=== PATIENT | male | born 1950 | race Caucasian/White ===

== ENCOUNTER 2022-07-14 11:40 | Inpatient (IN) | payer MEDICARE ==
[~2022-07-14 11:40] MED LIST: AMIODARONE 50 MG/ML 3 ML VIAL IV ONE; CALCIUM CHLORIDE 100 MG/ML 10 ML SYRINGE ONE; DEXTROSE 5% IN WATER 50 ML BAG ONE; EPINEPHrine 10 ML SYRINGE (0.1 MG/ML) ONE; LIDOCAINE 2% SYG (PF) 100 MG/5 ML ONE; MAGNESIUM SULFATE SYG 4.06 MEQ/ML SYRINGE ONE; SODIUM BICARB 8.4% 50 ML SYR (1 MEQ/ML) ONE
[2022-07-14 11:55] LABS: Glucose,Whole Blood 68 mg/dL (70-110)
[2022-07-14] MEDS ORDERED: NOREPINEPHRINE 32 MG in SODIUM CHLORIDE 0.9% 218 ML IV ONE (12:04)
[2022-07-14] MEDS ORDERED: DEXTROSE 5% IN WATER 100 ML with AMIODARONE 150 MG IV ONE (12:08)
[2022-07-14] MEDS ORDERED: AMIODARONE 360 MG in DEXTROSE 5% IN WATER 200 ML IV ONE ×2 (12:13)
[2022-07-14 12:16] LABS: Glucose,Whole Blood 68 mg/dL (70-110)
--- NOTE | 2022-07-14 12:23 | XR ---
EXAMINATION TYPE: XR chest 1V portable DATE OF EXAM: 07/14/2022 COMPARISON: NONE HISTORY: Cardiac arrest. TECHNIQUE: Single AP portable frontal supine view of the chest is obtained. FINDINGS: There is endotracheal tube terminating at superior aortic knob level approximately 4 to 5 cm above the trina. Cardiac silhouette size is upper limits of normal. There is small left pleural e ffusion. There is increased opacities bilaterally. Entire right lung base is not included. No pneumot horax is clearly evident. Underlying scoliosis is seen. IMPRESSION: 1. Satisfactory positioning of endotracheal tube. 2. Small left pleural effusion with diffuse bilateral edema and/or acute infiltrates.
[2022-07-14 12:36] LABS: Anisocytosis Slight; Hypochromasia Marked; MCH 33.2 pg (25.0-35.0); MCV 110.6 fL (80.0-100.0); Macrocytosis Marked; Mean Platelet Volume 10.8; RBC 4.52 m/uL (4.30-5.90)
[2022-07-14 12:53] LABS: Albumin 1.9 g/dL (3.5-5.0); Calcium 7.9 mg/dL (8.4-10.2); INR 2.1 (<1.2); Magnesium 4.8 mg/dL (1.6-2.3); Partial Thromboplastin Time 59.8 sec (22.0-30.0); Total Bilirubin 1.8 mg/dL (0.2-1.3); Total Protein 3.9 g/dL (6.3-8.2)
[2022-07-14] MEDS ORDERED: SODIUM CHLORIDE 0.9% 1,000 ML IV STA (12:54)
[2022-07-14 13:15] LABS: Platelet Count 72 k/uL (150-450)
[2022-07-14 13:17] LABS: Potassium 5.4 mmol/L (3.5-5.1)
[2022-07-14 13:19] LABS: Metamyelocytes # (M) 0.08 k/uL (0); Metamyelocytes % 1 %; Monocytes # (M) 0.16 k/uL (0-1.0); Myelocytes # (M) 0.08 k/uL (0); Myelocytes % 1 %; Neutrophils % (M) 88 %; Nucleated Red Blood Cells 1 /100 WBC (0-0); Total Cells Counted 200
[2022-07-14 13:20] LABS: Lymphocytes # (M) 0.71 k/uL (1.0-4.8); Neutrophils # (M) 6.95 k/uL (1.3-7.7); WBC 7.9 k/uL (3.8-10.6)
--- NOTE | 2022-07-14 13:46 | ED ---
CPR HPI - General Chief Complaint: Cardiac Arrest/CPR Stated Complaint: Cardiac Arrest Time Seen by Provider: 07/14/22 11:40 Source: EMS Mode of arrival: EMS - History of Present Illness Initial Comments: 71-year-old male with reported history of possible congestive heart failure who presents to the emergency department as a cardiac arrest. Daughter and EMS provided the history. Daughter states that he refused to see a physician for over 30 years. As of recent the patient did agree to be seen by Dr. Ashley's office. He had been started on a water pill. He is taking 20 mg of Lasix daily. Daughter states that over the past couple of days he has had increasing swelling and shortness of breath. The primary care office has been calling and urging the patient to go into the hospital. Daughter states that she has been unable to force him to go because he still makes his own medical decisions. Today the patient was short of breath and arrested in the bathroom in front of his daughter. She did start CPR and EMS call went out at 1106. They report that they were at the patient's house by 11:15 and the patient was pulseless. CPR was initiated. They did obtain a pulse back. Patient was intubated with a 7-1/2 ET tube in the field. Upon transport to the hospital he had received 5 epis. They lost pulses and it was noted that the patient was in V. fib so he was defibrillated. EMS was never able to get pulses back after this. He arrives to us intubated and bagged. He does not have a pulse in the Dhiraj device is performing compressions. He does have visible swelling to the lower extremities and blood coming from his ET tube. Family denies that he's had any fevers. Has had a cough. The remainder of the HPI is limited because of the patient's current status - Related Data Home Medications Medication Instructions Recorded Confirmed Aspirin EC [Ecotrin Low Dose] 81 mg PO DIRECTED 07/14/22 07/14/22 Furosemide [Lasix] 20 mg PO DIRECTED 07/14/22 07/14/22 Metoprolol Succinate (ER) [Toprol 25 mg PO DIRECTED 07/14/22 07/14/22 Xl] Warfarin Sodium 2.5 mg PO DIRECTED 07/14/22 07/14/22 Allergies Allergy/AdvReac Type Severity Reaction Status Date / Time No Known Allergies Allergy Unverified 07/14/22 14:41 Review of Systems ROS Statement: Those systems with pertinent positive or pertinent negative responses have been documented in the HPI. ROS Other: All systems not noted in ROS Statement are negative. General Exam Limitations: altered mental status, physical limitation General appearance: other (unresponsive to tactile, painful, verbal stimuli) Head exam: Present: atraumatic, normocephalic, normal inspection Pupils: Present: mydriatic (4 mm, non reactive) ENT exam: Present: other (intubated. copious blood sputum in ET tube) Respiratory exam: Present: other (bagged - no spontanous respirations. extremely coarse breath sounds) Cardiovascular Exam: Present: other (no palpable pulse) GI/Abdominal exam: Present: soft, distended Extremities exam: Present: other (no spontanous movemets) Neurological exam: Present: altered Skin exam: Present: cyanosis, pallor Course Vital Signs 07/14/22 07/14/22 07/14/22 12:04 12:42 12:50 Pulse Rate 70 70 Respiratory 22 20 Rate Blood Pressure 78/58 77/42 O2 Sat by Pulse Oximetry Fraction of 100 Inspired Oxygen (FIO2) 07/14/22 07/14/22 07/14/22 12:58 13:00 13:10 Pulse Rate 69 70 Respiratory 20 20 Rate Blood Pressure 72/51 81/65 O2 Sat by Pulse 95 89 L Oximetry Fraction of 100 Inspired Oxygen (FIO2) 07/14/22 07/14/22 07/14/22 13:20 13:30 13:56 Pulse Rate 69 66 65 Respiratory 20 20 20 Rate Blood Pressure 85/65 81/30 O2 Sat by Pulse 68 L 81 L Oximetry Fraction of Inspired Oxygen (FIO2) 07/14/22 07/14/22 07/14/22 14:00 14:10 14:20 Pulse Rate 66 61 54 L Respiratory 16 19 16 Rate Blood Pressure 81/30 138/101 163/88 O2 Sat by Pulse 75 L 79 L Oximetry Fraction of Inspired Oxygen (FIO2) 07/14/22 07/14/22 07/14/22 14:30 14:40 14:50 Pulse Rate 52 L 55 L 57 L Respiratory 20 18 3 L Rate Blood Pressure 167/106 114/70 O2 Sat by Pulse 70 L Oximetry Fraction of Inspired Oxygen (FIO2) 07/14/22 15:22 Pulse Rate Respiratory Rate Blood Pressure O2 Sat by Pulse Oximetry Fraction of 100 Inspired Oxygen (FIO2) Procedures - Central Line Placement Left Femoral Consent Obtained: emergent situation Patient Placed on Monitor/Pulse Ox: Yes MD Prep: mask, gown, gloves Central Line Prep: Chlorhexidine scrub Ultrasound Used for Placement: Yes Central Line Lumen Inserted: triple Bloods Obtained for Lab: Yes Central Line Position: good blood return, all ports aspirated, flushed, capped, sutured in place with nylon Dressing Applied: Tegaderm Patient Tolerated Procedure: well, no complications Complications: none Medical Decision Making - Medical Decision Making Was pt. sent in by a medical professional or institution (, PA, MEDIA TRAFFIC MANAGER, urgent care, hospital, or care home...) When possible be specific @ -No Did you speak to anyone other than the patient for history (EMS, parent, family, police, friend...)? What history was obtained from this source @ -Patients daughter provides history, EMS provides details of what medical care they provided Did you review nursing and triage notes (agree or disagree)? Why? @ -I reviewed and agree with nursing and triage notes Were old charts reviewed (outside hosp., previous admission, EMS record, old EKG, old radiological studies, urgent care reports/EKG's, care home records)? Report findings @ -No old charts were reviewed Differential Diagnosis (chest pain, altered mental status, abdominal pain women, abdominal pain men, vaginal bleeding, weakness, fever, dyspnea, syncope, headache, dizziness, GI bleed, back pain, seizure, CVA, palpatations, mental health, musculoskeletal)? @ -v fib arrest, respiratory arrest, PE, brain bleed, dissection, aneurysm EKG interpreted by me (3pts min.). @ -Yes - sinus rhythm X-rays interpreted by me (1pt min.). @ -yes - pulmonary edema - no pneumothorax CT interpreted by me (1pt min.). @ -Yes, pulmonary edema. No ICH U/S interpreted by me (1pt. min.). @ -bedside us performed - no pericardial effusion. EF significantly reduced What testing was considered but not performed or refused? (CT, X-rays, U/S, labs)? Why? @ -None What meds were considered but not given or refused? Why? @ -None Did you discuss the management of the patient with other professionals (pr ofessionals i.e. , PA, MEDIA TRAFFIC MANAGER, lab, RT, psych nurse, nephrology social worker, residential program coordinator, teacher, textile technical officer, case fitter)? Give summary @ -Yes, Dr. Ahuja and Dr. Ashley Was smoking cessation discussed for >3mins.? @ -No Was critical care preformed (if so, how long)? @ -Yes, 55 minutes Were there social determinants of health that impacted care today? How? (Homelessness, low income, unemployed, alcoholism, drug addiction, transportation, low edu. Level, literacy, decrease access to med. care, [facility], rehab)? @ -No Was there de-escalation of care discussed even if they declined (Discuss DNR or withdrawal of care, Hospice)? DNR status @ -No What co-morbidities impacted this encounter? (DM, HTN, Smoking, COPD, CAD, Cancer, CVA, ARF, Chemo, Hep., AIDS, mental health diagnosis, sleep apnea, morbid obesity)? @ -None diagnosed - patient had not seen a physician in 30 years previous to his last visit for peripheral edema Was patient admitted / discharged? Hospital course, mention meds given and route, prescriptions, significant lab abnormalities, going to OR and other pert inent info. @ -Upon arrival patient was placed into trauma 2. He is hooked up to continuous pulse ox and cardiac monitoring. Patient is intubated with a 7-1/2 ET tube which is secured. Patient is bagged and has bilateral, coarse breath sounds. He has significant frothy bloody sputum coming from his ET tube. Patient does not have a pulse and therefore CPR is continued. He is given 300 mg of amiodarone due to his history of V. fib. We are able to obtain pulses back on the patient but only for a short period of time. Pulses did return at 1148 however only sustained for less than 5 minutes. We then once again started compressions and he is given in total - 4 epinephrine, 2 amp dextrose, 1 g of magnesium, 1 amp of calcium chloride, 2 amp bicarb, and 100 mg of lidocaine for persistent vfib. The patient was defibrillated 3 times. He is placed on amiodarone drip. We are able to obtain pulses back at 1201 however at this point the patient has been down for an hour. Chest x-ray is performed which demonstrates significant heart failure. Bedside ultrasound is performed which demonstrates a severely reduced EF with no signs of pericardial effusion. Patient is started on a Levophed drip as he remains hypotensive. Laboratory studies are conducted. I did place a central line in the patient's left groin. Daughter states that when he arrested that he hit his head and therefore a CT of the brain is ordered. CT of the chest is performed however without contrast due to the patient's kidney injury. I spoke with Dr. Ahuja in regards to the case. After the CT of the brain was performed and confirmed that the patient did not have a head bleed, admitting orders were placed. I spoke with the patient's daughter who would like to keep him as a full code at this time. Spoke with Dr. Ashley who will admit the patient. Patient in critical condition and was transported to the ICU Undiagnosed new problem with uncertain prognosis? @ -yes Drug Therapy requiring intensive monitoring for toxicity (Heparin, Nitro, Insulin, Cardizem)? @ -Amiodarone, levophed, bicarb Were any procedures done? @ -CPR, defibrillation x 3, left femoral central line Diagnosis/symptom? @ -acute cardiac arrest, fall, blunt head trauma, v fib, chf, hypotension, cardiogenic shock, vent dependant resp failure, anoxic brain injury Acute, or Chronic, or Acute on Chronic? @ -acute Uncomplicated (without systemic symptoms) or Complicated (systemic symptoms)? @ -complicated Side effects of treatment? @ -No Exacerbation, Progression, or Severe Exacerbation? @ -No Poses a threat to life or bodily function? How? (Chest pain, USA, VA, pneumonia, PE, COPD, DKA, ARF, appy, cholecystitis, CVA, Diverticulitis, Homicidal, Suicidal, threat to staff... and all critical care pts) @ -Yes - patient has significantly poor prognosis. He sustained over an hour of CPR therefore neurologic outcome is unlikely - Lab Data Result diagrams: 07/14/22 12:20 07/14/22 12:20 Lab Results 07/14/22 07/14/22 07/14/22 Range/Units 11:45 12:05 12:20 WBC 7.9 (3.8-10.6) k/uL RBC 4.52 (4.30-5.90) m/uL Hgb 15.0 (13.0-17.5) gm/dL Hct 50.0 (39.0-53.0) % MCV 110.6 H (80.0-100.0) fL MCH 33.2 (25.0-35.0) pg MCHC 30.0 L (31.0-37.0) g/dL RDW 17.0 H (11.5-15.5) % Plt Count 72 L (150-450) k/uL MPV 10.8 Neutrophils % (Manual) 88 % Lymphocytes % (Manual) 9 % Monocytes % (Manual) 2 % Metamyelocytes % 1 % Myelocytes % 1 % Neutrophils # (Manual) 6.95 (1.3-7.7) k/uL Lymphocytes # (Manual) 0.71 L (1.0-4.8) k/uL Monocytes # (Manual) 0.16 (0-1.0) k/uL Metamyelocytes # (Man) 0.08 H (0) k/uL Myelocytes # (Manual) 0.08 H (0) k/uL Nucleated RBCs 1 H (0-0) /100 WBC Manual Slide Review Performed Hypochromasia Marked Anisocytosis Slight Macrocytosis Marked A PT (9.0-12.0) sec INR (<1.2) APTT (22.0-30.0) sec Sodium (137-145) mmol/L Potassium (3.5-5.1) mmol/L Chloride (98-107) mmol/L Carbon Dioxide (22-30) mmol/L Anion Gap mmol/L BUN (9-20) mg/dL Creatinine (0.66-1.25) mg/dL Est GFR (CKD-EPI)AfAm (>60 ml/min/1.73 sqM) Est GFR (CKD-EPI)NonAf (>60 ml/min/1.73 sqM) Glucose (74-99) mg/dL POC Glucose (mg/dL) 68 L 68 L (70-110) mg/dL POC Glu Clinical Project Assistant Preeti Vaughan Katlyn Lactic Ac Sepsis Rflx Plasma Lactic Acid Duncan (0.7-2.0) mmol/L Calcium (8.4-10.2) mg/dL Magnesium (1.6-2.3) mg/dL Total Bilirubin (0.2-1.3) mg/dL AST (17-59) U/L ALT (4-49) U/L Alkaline Phosphatase (38-126) U/L Troponin I (0.000-0.034) ng/mL NT-Pro-B Natriuret Pep pg/mL Total Protein (6.3-8.2) g/dL Albumin (3.5-5.0) g/dL Blood Type Blood Type Confirm Blood Type Recheck Bld Type Recheck Status Antibody Screen Spec Expiration Date 07/14/22 07/14/22 07/14/22 Range/Units 12:20 12:20 12:20 WBC (3.8-10.6) k/uL RBC (4.30-5.90) m/uL Hgb (13.0-17.5) gm/dL Hct (39.0-53.0) % MCV (80.0-100.0) fL MCH (25.0-35.0) pg MCHC (31.0-37.0) g/dL RDW (11.5-15.5) % Plt Count (150-450) k/uL MPV Neutrophils % (Manual) % Lymphocytes % (Manual) % Monocytes % (Manual) % Metamyelocytes % % Myelocytes % % Neutrophils # (Manual) (1.3-7.7) k/uL Lymphocytes # (Manual) (1.0-4.8) k/uL Monocytes # (Manual) (0-1.0) k/uL Metamyelocytes # (Man) (0) k/uL Myelocytes # (Manual) (0) k/uL Nucleated RBCs (0-0) /100 WBC Manual Slide Review Hypochromasia Anisocytosis Macrocytosis PT 21.0 H (9.0-12.0) sec INR 2.1 H (<1.2) APTT 59.8 H (22.0-30.0) sec Sodium 126 L (137-145) mmol/L Potassium 5.4 H (3.5-5.1) mmol/L Chloride 95 L (98-107) mmol/L Carbon Dioxide 18 L (22-30) mmol/L Anion Gap 13 mmol/L BUN 64 H (9-20) mg/dL Creatinine 2.09 H (0.66-1.25) mg/dL Est GFR (CKD-EPI)AfAm 36 (>60 ml/min/1.73 sqM) Est GFR (CKD-EPI)NonAf 31 (>60 ml/min/1.73 sqM) Glucose 276 H (74-99) mg/dL POC Glucose (mg/dL) (70-110) mg/dL POC Glu Clinical Project Assistant ID Lactic Ac Sepsis Rflx Plasma Lactic Acid Duncan (0.7-2.0) mmol/L Calcium 7.9 L (8.4-10.2) mg/dL Magnesium 4.8 H (1.6-2.3) mg/dL Total Bilirubin 1.8 H (0.2-1.3) mg/dL AST 131 H (17-59) U/L ALT 121 H (4-49) U/L Alkaline Phosphatase 104 (38-126) U/L Troponin I 1.220 H* (0.000-0.034) ng/mL NT-Pro-B Natriuret Pep pg/mL Total Protein 3.9 L (6.3-8.2) g/dL Albumin 1.9 L (3.5-5.0) g/dL Blood Type Blood Type Confirm Blood Type Recheck Bld Type Recheck Status Antibody Screen Spec Expiration Date 07/14/22 07/14/22 07/14/22 Range/Units 12:20 12:20 12:20 WBC (3.8-10.6) k/uL RBC (4.30-5.90) m/uL Hgb (13.0-17.5) gm/dL Hct (39.0-53.0) % MCV (80.0-100.0) fL MCH (25.0-35.0) pg MCHC (31.0-37.0) g/dL RDW (11.5-15.5) % Plt Count (150-450) k/uL MPV Neutrophils % (Manual) % Lymphocytes % (Manual) % Monocytes % (Manual) % Metamyelocytes % % Myelocytes % % Neutrophils # (Manual) (1.3-7.7) k/uL Lymphocytes # (Manual) (1.0-4.8) k/uL Monocytes # (Manual) (0-1.0) k/uL Metamyelocytes # (Man) (0) k/uL Myelocytes # (Manual) (0) k/uL Nucleated RBCs (0-0) /100 WBC Manual Slide Review Hypochromasia Anisocytosis Macrocytosis PT (9.0-12.0) sec INR (<1.2) APTT (22.0-30.0) sec Sodium (137-145) mmol/L Potassium (3.5-5.1) mmol/L Chloride (98-107) mmol/L Carbon Dioxide (22-30) mmol/L Anion Gap mmol/L BUN (9-20) mg/dL Creatinine (0.66-1.25) mg/dL Est GFR (CKD-EPI)AfAm (>60 ml/min/1.73 sqM) Est GFR (CKD-EPI)NonAf (>60 ml/min/1.73 sqM) Glucose (74-99) mg/dL POC Glucose (mg/dL) (70-110) mg/dL POC Glu Clinical Project Assistant ID Lactic Ac Sepsis Rflx Plasma Lactic Acid Duncan 9.1 H* (0.7-2.0) mmol/L Calcium (8.4-10.2) mg/dL Magnesium (1.6-2.3) mg/dL Total Bilirubin (0.2-1.3) mg/dL AST (17-59) U/L ALT (4-49) U/L Alkaline Phosphatase (38-126) U/L Troponin I (0.000-0.034) ng/mL NT-Pro-B Natriuret Pep 66389 pg/mL Total Protein (6.3-8.2) g/dL Albumin (3.5-5.0) g/dL Blood Type A Negative Blood Type Confirm Blood Type Recheck No Previous Record Bld Type Recheck Status CABO Indicated Antibody Screen NEGATIVE Spec Expiration Date 07/17/2022 - 231907/14/22 07/14/22 Range/Units 12:59 14:20 WBC (3.8-10.6) k/uL RBC (4.30-5.90) m/uL Hgb (13.0-17.5) gm/dL Hct (39.0-53.0) % MCV (80.0-100.0) fL MCH (25.0-35.0) pg MCHC (31.0-37.0) g/dL RDW (11.5-15.5) % Plt Count (150-450) k/uL MPV Neutrophils % (Manual) % Lymphocytes % (Manual) % Monocytes % (Manual) % Metamyelocytes % % Myelocytes % % Neutrophils # (Manual) (1.3-7.7) k/uL Lymphocytes # (Manual) (1.0-4.8) k/uL Monocytes # (Manual) (0-1.0) k/uL Metamyelocytes # (Man) (0) k/uL Myelocytes # (Manual) (0) k/uL Nucleated RBCs (0-0) /100 WBC Manual Slide Review Hypochromasia Anisocytosis Macrocytosis PT (9.0-12.0) sec INR (<1.2) APTT (22.0-30.0) sec Sodium (137-145) mmol/L Potassium (3.5-5.1) mmol/L Chloride (98-107) mmol/L Carbon Dioxide (22-30) mmol/L Anion Gap mmol/L BUN (9-20) mg/dL Creatinine (0.66-1.25) mg/dL Est GFR (CKD-EPI)AfAm (>60 ml/min/1.73 sqM) Est GFR (CKD-EPI)NonAf (>60 ml/min/1.73 sqM) Glucose (74-99) mg/dL POC Glucose (mg/dL) (70-110) mg/dL POC Glu Clinical Project Assistant ID Lactic Ac Sepsis Rflx Y Plasma Lactic Acid Duncan (0.7-2.0) mmol/L Calcium (8.4-10.2) mg/dL Magnesium (1.6-2.3) mg/dL Total Bilirubin (0.2-1.3) mg/dL AST (17-59) U/L ALT (4-49) U/L Alkaline Phosphatase (38-126) U/L Troponin I (0.000-0.034) ng/mL NT-Pro-B Natriuret Pep pg/mL Total Protein (6.3-8.2) g/dL Albumin (3.5-5.0) g/dL Blood Type Blood Type Confirm A Negative Blood Type Recheck Bld Type Recheck Status Antibody Screen Spec Expiration Date - EKG Data EKG Comments: EKG interpreted by myself demonstrates sinus rhythm with a rate of 90. NH interval 164. QRS 141. QTC of 472. ST depression V3 through V6. Baseline artifact in V4 through V6. No ST elevation Critical Care Time Critical Care Time: Yes Critical Care Time: 55 minutes Disposition Clinical Impression: Cardiac arrest, Ventricular fibrillation, Ventricular tachycardia, Ventilator dependence, Heart failure Disposition: [facility]MITT[facility] Condition: Critical Is patient prescribed a controlled substance at d/c from ED?: No Time of Disposition: 14:26 Decision to Admit Reason: Admit from EC Decision Date: 07/14/22 Decision Time: 14:27
[2022-07-14] MEDS ORDERED: CISATRACURIUM 2 MG/ML 5 ML VIAL IV ONE (14:18)
--- NOTE | 2022-07-14 14:19 | CT ---
EXAMINATION TYPE: CT brain cspine wo con DATE OF EXAM: 07/14/2022 COMPARISON: NONE HISTORY: Fall. Unresponsive. Headache and neck pain. CT DLP: 1500.6 mGycm. Automated Exposure Control for Dose Reduction was Utilized. TECHNIQUE: CT scan of the head and cervical spine are performed without contrast. FINDINGS: There is no acute intracranial hemorrhage or midline shift identified. Mild ventricular a nd sulcal prominence. Samuels-white matter demonstration fairly well preserved. Calvarium intact. The g lobes are intact and the visualized sinuses are clear. Cervical spine is visualized in its entirety from C1 through upper thoracic levels and demonstrates s atisfactory alignment without evidence of acute fracture or dislocation. Prevertebral soft tissue ap pears within normal limits. The C1-C2 articulation is within normal limits on the coronal images. V ertebral body heights are preserved. Mild to moderate disc space narrowing C5-C6 and C6-C7 levels is present. Posterior spur disc complex is mildly effacing ventral thecal sac at these levels on sagitta l and axial images. There is mild to moderate vascular calcification bilateral carotid bulb level. So mewhat small thyroid gland is seen. There is partial visualization of endotracheal and orogastric tub es. Please refer to same day CT thorax report for complete details on the upper lungs IMPRESSION: 1. There is no acute fracture or dislocation evident in the cervical spine. 2. No acute intracranial hemorrhage or midline shift is seen.
--- NOTE | 2022-07-14 14:24 | CT ---
EXAMINATION TYPE: CT chest wo con DATE OF EXAM: 07/14/2022 COMPARISON: Same day chest x-ray. HISTORY: Found unresponsive. CPR. Abnormal chest x-ray. CT DLP: 455.9 mGycm. Automated Exposure Control for Dose Reduction was Utilized. TECHNIQUE: CT scan of the thorax is performed without IV contrast. FINDINGS: LUNGS: Corresponding to x-ray there are multifocal groundglass opacities organizing consolidations wi th greatest involvement posterior and lower lungs. No pneumothorax is seen bilaterally. There are cur vilinear calcifications posterior pleura right lower lobe. Endotracheal tube terminates in satisfacto ry position just above the aortic arch. MEDIASTINUM: Lack of IV contrast is noted to limit evaluation for mediastinal and especially hilar ad enopathy. There is enlarged 2.0 x 1.5 cm pericarinal lymph node axial image 23. No cardiomegaly or pe ricardial effusion. Severe three-vessel coronary artery calcification. Prominent pulmonary arteries s uggests underlying pulmonary artery hypertension. OTHER: Some fluid surrounds liver and spleen. There is moderate diffuse subcutaneous edema. There is assess shaped scoliosis. There is multilevel anterior spurring in the upper to mid thoracic spine. O rogastric tube terminates just above the diaphragm and should be advanced. IMPRESSION: 1. Confirmation of diffuse bilateral multifocal edema and/or infiltrates as suspected on x-ray. 2. Oral gastric tube should be advanced as does not extend below diaphragm.
[2022-07-14] MEDS ORDERED: NALOXONE 0.4 MG/ML 1 ML VIAL IV PRN (14:32)
--- NOTE | 2022-07-14 15:06 | XR ---
EXAMINATION TYPE: XR chest 1V portable DATE OF EXAM: 07/14/2022 CLINICAL HISTORY: OG tube placement. TECHNIQUE: 2 AP portable semiupright view of the chest are obtained. COMPARISON: Chest x-ray and CT from earlier today FINDINGS: Orogastric tube now projects below diaphragm. Stable positioning of endotracheal tube. Cardiac silhouette size is stable and upper limits of normal. There is small left pleural effusion re demonstrated. Tiny right pleural effusion is now present. Bilateral increased multifocal opacities re demonstrated. No pneumothorax is clearly evident. Old lateral right mid rib fractures are noted. IMPRESSION: Now satisfactory positioning of orogastric tube. Now small to tiny left greater than righ t pleural effusions with bilateral multifocal edema and/or infiltrates.
[2022-07-14 15:07] LABS: Glucose,Whole Blood 168 mg/dL (70-110)
--- NOTE | 2022-07-14 15:12 | P.CNPUL ---
History of Present Illness Consult date: 07/14/22 Requesting physician: Alexis Stafford Reason for consult: dyspnea, COPD, hypoxemia, pleural effusion, abnormal CXR/CT Chief complaint: Respiratory failure/shortness of breath/cardiac arrest. History of present illness: Pulmonary consult dated 07/14/2022. 71-year-old male with apparent no significant past medical history, who has not seen a doctor in more than 40 years, was brought in to the emergency room, July 14, at about 20 minutes till noon, and full cardiac arrest. The patient apparently was receiving cardiopulmonary resuscitation on the field, received medications there and released 1 defibrillation. In the emergency department, the patient received multiple defibrillations, as well as multiple drugs including amiodarone, lidocaine, and norepinephrine. The patient is currently intubated and mechanically ventilated. The patient is very dyssynchronous with the ventilator. 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 Apparently also used to drink in the past. He is on no medications other than Benadryl and aspirin, and maybe Lasix. He recently started seeing a nurse practitioner and 's office. The patient had a very prolonged resuscitation, lasting for more than one hour. During that time, the patient was receiving cardiopulmonary resuscitation, multiple defibrillations, and also multiple medications. Currently, he's on the ventilator, mode assist control, rate 20, tidal volume 500, FiO2 100%, PEEP of 5. The patient is currently on norepinephrine at 0.165 mcg/kg/m, and amiodarone at 1 mg/m. A left femoral triple-lumen catheter was placed. Again the patient hasn't seen a doctor in 30 years. We saw him in the emergency room, he was profoundly dyssynchronous with the ventilator, and having significant abnormal respirations, best defined as guppy breaths. We asked the nurse to place him on propofol, and also give him Nimbex, 15 mg IV push, for better synchrony with the ventilator. Laboratory data includes a white count of 7.9, hemoglobin 15, hematocrit 50, and a platelet count of 72,000. PTT was 21 INR was 2.1 and PTT was 59.8. Sodium 126, potassium 5.4, chlorides 95, CO2 18, anion gap 13, BUN 64, and creatinine 2.09. Lactic acid is 9.1. Calcium 7.9. Bilirubin 1.8, AST 131, ALT 121, troponin 1.0, and N-terminal proBNP 20,200 and his albumin was only 1.9. Chest x-ray showed diffuse bilateral infiltrates consistent with acute pulmonary edema. Head and neck CAT scans were negative. Computed tomography scan of the chest done without contrast shows pulmonary edema, as wel l as an improperly placed and NG tube. Place patient was recently started on warfarin, metoprolol, Lasix, and aspirin. Review of Systems REVIEW OF SYSTEMS: CONSTITUTIONAL: Weakness. NEUROLOGIC: [ Negative.] HEENT: [ Negative.] CARDIAC: Lower extremity edema. PULMONARY: Shortness of breath. GI: [Negative.] : [Negative.] RHEUMATOLOGIC: [ Negative.] IMMUNOLOGIC: [ Negative.] ENDOCRINE: [Negative. ] DERMATOLOGIC: [Negative.] Medications and Allergies Home Medications Medication Instructions Recorded Confirmed Type Aspirin EC [Ecotrin Low Dose] 81 mg PO DIRECTED 07/14/22 07/14/22 History Furosemide [Lasix] 20 mg PO DIRECTED 07/14/22 07/14/22 History Metoprolol Succinate (ER) [Toprol 25 mg PO DIRECTED 07/14/22 07/14/22 History Xl] Warfarin Sodium 2.5 mg PO DIRECTED 07/14/22 07/14/22 History Allergies Allergy/AdvReac Type Severity Reaction Status Date / Time No Known Allergies Allergy Unverified 07/14/22 14:41 Physical Exam Osteopathic Statement: *. No significant issues noted on an osteopathic stru ctural exam other than those noted in the History and Physical/Consult. Vitals: Vital Signs FiO2 07/14/22 12:58 100 07/14/22 12:04 100 Intake and Output 07/13/22 07/14/22 07/14/22 22:59 06:59 14:59 Intake Total 1.214 Balance 1.214 Intake: Intake, IV Titration 1.214 Amount propofoL 1,000 mg In 1.214 Empty Bag 1 bag @ 15 MCG/ KG/MIN 8.095 mls/hr IV . [id number] [facility] Rx#:[id number] Other: Weight 89.947 kg Patient/ventilator asynchrony, unresponsive, with an orally placed endotracheal tube. From the thin bloody secretions are noted in the endotracheal tube, and suction container. HEENT examination is grossly unremarkable. Neck supple. Full range of motion. No adenopathy thyromegaly or neck vein distention. Cardiovascular examination reveals regular rhythm rate. S1-S2 normal. No S3 or S4. No discernible murmur noted. Heart sounds are distant. Lungs reveal diffuse bilateral rhonchi. Breath sounds are equal. Abdomen soft without bowel sounds. Extremities significant lower extremity edema, with pitting. No cyanosis or clubbing. Skin is without rash or lesion. Neurologic examination cannot be adequately assessed at this time. Results - Laboratory Findings CBC and BMP: 07/14/22 12:20 07/14/22 12:20 PT/INR, D-dimer PT 21.0 sec (9.0-12.0) H 07/14/22 12:20 INR 2.1 (<1.2) H 07/14/22 12:20 Abnormal lab findings: Abnormal Labs 07/14/22 07/14/22 07/14/22 11:45 12:05 12:20 MCV 110.6 H MCHC 30.0 L RDW 17.0 H Plt Count 72 L Lymphocytes # (Manual) 0.71 L Metamyelocytes # (Man) 0.08 H Myelocytes # (Manual) 0.08 H Nucleated RBCs 1 H Macrocytosis Marked A PT INR APTT Sodium Potassium Chloride Carbon Dioxide BUN Creatinine Glucose POC Glucose (mg/dL) 68 L 68 L Plasma Lactic Acid Duncan Calcium Magnesium Total Bilirubin AST ALT Troponin I Total Protein Albumin 07/14/22 07/14/22 07/14/22 12:20 12:20 12:20 MCV MCHC RDW Plt Count Lymphocytes # (Manual) Metamyelocytes # (Man) Myelocytes # (Manual) Nucleated RBCs Macrocytosis PT 21.0 H INR 2.1 H APTT 59.8 H Sodium 126 L Potassium 5.4 H Chloride 95 L Carbon Dioxide 18 L BUN 64 H Creatinine 2.09 H Glucose 276 H POC Glucose (mg/dL) Plasma Lactic Acid Duncan Calcium 7.9 L Magnesium 4.8 H Total Bilirubin 1.8 H AST 131 H ALT 121 H Troponin I 1.220 H* Total Protein 3.9 L Albumin 1.9 L 07/14/22 12:20 MCV MCHC RDW Plt Count Lymphocytes # (Manual) Metamyelocytes # (Man) Myelocytes # (Manual) Nucleated RBCs Macrocytosis PT INR APTT Sodium Potassium Chloride Carbon Dioxide BUN Creatinine Glucose POC Glucose (mg/dL) Plasma Lactic Acid Duncan 9.1 H* Calcium Magnesium Total Bilirubin AST ALT Troponin I Total Protein Albumin - Diagnostic Findings Chest x-ray: image reviewed CT scan - chest: image reviewed Assessment and Plan Assessment: Acute hypoxemic respiratory failure with acute cardiopulmonary arrest, prolonged cardiopulmonary resuscitation, and eventual return of spontaneous circulation (CPA/CPR/ROSC), status post intubation and mechanical ventilation, 07/14/2022. Probable significant anoxic brain injury, secondary to prolonged resuscitation time (> 1 hour). Acute pulmonary edema. Severe metabolic acidosis, secondary to lactic acidemia. Anion gap metabolic acidosis. Probable acute kidney injury secondary to ATN. Rule out ischemic heart disease. Thrombocytopenia. Medical noncompliance. History of heavy tobacco use. Prior history of heavy alcohol use. Plan: Plan dated 07/14/2022. The patient is seen and evaluated in the emergency department, trauma room today. The patient's quite dyssynchronous with the ventilator. We did ask the nurse to give him some Nimbex, and also propofol for sedation. The blood gases cannot be obtained from respiratory therapy. The patient is currently on norepinephrine at 0.165 mcg/kg/m and also on amiodarone at 1 mg/m. The patient had a resuscitation time of greater than 1 hour. The patient received multiple shocks, and multiple rounds of medications. I suspect the patient has sustained a significant anoxic brain injury. Computed tomography scan did not show anything acute. Chest x-ray and computed tomography scan of the chest are consistent with fluid overload. N-terminal proBNP was greater than 20,000. The patient's overall prognosis is very poor. We will continue to follow make recommendations along the way. Time with Patient: Greater than 30
[2022-07-14] MEDS ORDERED: NOREPINEPHRINE 32 MG in SODIUM CHLORIDE 0.9% 218 ML IV SCH (15:30)
[2022-07-14 17:17] VITALS: BP 114/70; PULSE 57; RESP 3
--- NOTE | 2022-07-16 08:40 | P.PN ---
Progress Note - Text Progress Note Date: 07/14/22 Code called overhead at 1509. Patient was in the ICU. Based on the story, patient had coded multiple times in the emergency. After arriving to the ICU, patient coded again. A total of 2 epi given, remained asystolic, BiPAP given twice, calcium gluconate given, once. ROSC at 1517. Spoke directly with daughter, patient made no code and comfort care. He should expect it to during this hospitalization.
== END 2022-07-14 17:44 | disposition expired | DRG 208 ==
LOC: EC 11:40 → 2SICU 14:32
PROVIDERS: ADMIT Family Medicine; ATTEND Family Medicine
PROC: 06HY33Z Insertion of Infusion Device into Lower Vein, Percutaneous Approach (ICD-10-PCS; principal; 2022-07-14)
PROC: 3E043XZ Introduction of Vasopressor into Central Vein, Percutaneous Approach (ICD-10-PCS; principal; 2022-07-14)
PROC: 5A1935Z Respiratory Ventilation, Less than 24 Consecutive Hours (ICD-10-PCS; principal; 2022-07-14)
DX: J96.01 Acute respiratory failure with hypoxia (principal); N17.0 Acute kidney failure with tubular necrosis; J81.0 Acute pulmonary edema; Z99.11 Dependence on respirator [ventilator] status; I47.20 Ventricular tachycardia, unspecified; G93.1 Anoxic brain damage, not elsewhere classified; E87.4 Mixed disorder of acid-base balance; I50.9 Heart failure, unspecified; I11.0 Hypertensive heart disease with heart failure; J44.9 Chronic obstructive pulmonary disease, unspecified; I49.01 Ventricular fibrillation; I46.8 Cardiac arrest due to other underlying condition; D69.6 Thrombocytopenia, unspecified; F17.210 Nicotine dependence, cigarettes, uncomplicated; Z91.199 Patient's noncompliance with other medical treatment and regimen due to unspecified reason; F10.20 Alcohol dependence, uncomplicated; Z66 Do not resuscitate; Z51.5 Encounter for palliative care
CPT/HCPCS: 36415; 36556; 70450; 71045; 71250; 72125; 80053; 83605; 83735; 83880; 84484; 85025; 85610; 85730; 86850; 86900; 86901; 87070; 87205; 92950; 93005; 94002; 96365; 96367; 96368; 96375; 99291